=== PATIENT | male | born 1955 | race Caucasian/White ===

== ENCOUNTER 2016-11-08 09:13 | Inpatient (IN) | payer OTHER ==
[2016-11-08] VITALS (9 sets, daily range): BP systolic 169–226; BP diastolic 89–135; PULSE 73–87; RESP 15–20; O2SAT 97–99
[~2016-11-08] VITALS: Ht 177.8 cm; Wt 99.8 kg
--- NOTE | 2016-11-08 09:17 | ED.REPORT ---
HPI-Neurologic Deficit Date of Service Nov 08, 2016 ED Provider: Jesse Coles DO A healthy 61 year old male presents to the ER complaining of left upper and lower extremity weakness onset last night upon standing up off the couch after watching TV around 20:00. He admits to drinking a couple beers last night, but states that he drinks a similar quantity on a daily basis without eliciting similar symptoms. His symptoms have improved since onset, but he endorses mild residual left side deficits. Patient denies facial numbness, and any pain. Last physical 6-8years ago. Nursing Notes Stated Complaint: POSSIBLE STROKE Chief Complaint: Neuro Symptoms/ Deficits Nursing Notes Reviewed: Yes Allergies: Coded Allergies: No Known Allergies (Unverified , 11/08/16) No Active Prescriptions or Reported Meds General Time Seen by Provider: 09:17 Chief Complaint Weakness arm... (Left), Weakness leg... (Left) Hx Obtained From: Patient Arrived By: Walk-in Sudden in Onset?: Yes Onset Occurred: Yesterday Symptom Duration: Since onset Pertinent Negative: Pt denies other symptoms Related History: Denies: CVA/TIA Recent Healthcare: No recent doctor visit Similar Sx Previous: No Risk Factors NIH Stroke Scale Level of Consciousness: Alert and responsive (0) Ask Month & Age: Both questions right (0) Open/Close Eyes/Hand Special Procedure Tech: Performs both tasks (0) Horizontal EO Movements: None (0) Visual Johnson: No visual loss (0) Facial Palsy: Normal symmetry (0) Right Arm Motor Drift (10s): No drift 10 sec (0) Left Arm Motor Drift (10s): Drift, not touch bed (1) Right Leg Motor Drift (5s): No drift 5 sec (0) Left Leg Motor Drift (5s): Drift, not touch bed (1) Limb Ataxia FNF/Heel-Maldonado: Ataxia in 2 limbs (2) Sensation (Arms/Legs/Face): No sensory loss (0) Language Aphasia: No aphasia, normal (0) Dysarthria: No dysarthria, normal (0) Extinction/Inattention: No exctinct/inattent (0) NIHSS Score: 4 Time NIHSS Performed: 09:28 Date NIHSS Performed: Nov 08, 2016 CVA Risk Stratification EtOH use SmokingNo Age >60, No Atrial fibrillation, No Diabetes mellitus, No Hyperlipidemia, No Hypertension, No Prior CVA/TIA RF Statements: Risk factors reviewed Past Medical History Past Medical History Notes: Code Status: FULL CODE Past Medical History Denies MS Denies: Stroke Past Surgical History Reports: Back/neck surgery Smoking History Current Every Day Smoker Social History Alcohol Use: 1-3 per day Ambulatory Status Independent Review of Systems Musculoskeletal: Denies: Back pain, Extremity pain, Joint pain, Lumbar pain, Neck pain, Thoracic pain Neurologic: Reports: Focal weakness (Left Upper and Lower Extremities), Denies: Change LOC, Confusion, Headache, Slurred speech, Syncope, Unable to speak Complete sys rev & neg: except as marked. Physical Exam Initial Vital Signs Vital Signs (First) Date Time Temp Pulse Resp B/P Pulse Ox O2 Delivery O2 Flow Rate FiO2 11/08/16 09:16 35.9 87 16 226/121 99 Room Air Initial VS: Reviewed Neck: Supple, Non-tender, Full range of motion Abdomen / GI: Soft, Non-tender, No guarding, No rebound, No distention Extremities: Vascular intact, Neuro intact, No swelling, No tenderness Skin: Warm, Dry, No cyanosis General/Constitutional: Awake, Alert, Well developed, Well nourished Head / Eyes: Atraumatic, Normocephalic Respiratory / Chest: Breath sounds NL, Breath sounds = bilat, No respiratory distress, No rales, No rhonchi, No wheezing Cardiovascular: Heart rate NL, Regular rhythm, Heart sounds NL, Peripheral circulation NL Neurologic: Oriented X3, Speech NL, No sensory deficits See NIH Stroke Scale in the Risk section of this note. Interpretation & Diagnostics Lab Results Interpretation Result Diagram: 11/08/16 0945 11/08/16 0945 Test 11/08/16 09:45 White Blood Count 8.2th/mm3 (3.8-10.1) Red Blood Count 5.10mil/mm3 (4.40-5.80) Hemoglobin 15.6g/dL (13.8-17.2) Hematocrit 44.7% (41.0-50.0) Mean Corpuscular Volume 87.6fL (81-100) Mean Corpuscular Hemoglobin 30.6pg (27.0-35.0) Mean Corpuscular Hemoglobin Concent 34.9% (32.0-37.0) Red Cell Distribution Width 13.2% (12.3-15.4) Platelet Count 261bil/L (150-400) Neutrophils (%) (Auto) 62.8% (40-74) Lymphocytes (%) (Auto) 19.1% (14-46) Monocytes (%) (Auto) 9.8% (4-12) Eosinophils (%) (Auto) 7.2% (0-5) Basophils (%) (Auto) 0.7% (0-3) Prothrombin Time 9.9sec (8.1-12.5) Prothromb Time International Ratio 0.93ratio Activated Partial Thromboplast Time 30.6sec (22.8-33.0) Sodium Level 137mEq/L (134-144) Potassium Level 4.4mEq/L (3.5-5.2) Chloride Level 100mEq/L (97-108) Carbon Dioxide Level 21mmol/L (18-29) Blood Urea Nitrogen 13mg/dL (6-24) Creatinine 0.91mg/dL (0.76-1.27) Estimat Glomerular Filtration Rate 91mL/min (>59) Glucose Level 118mg/dL (60-99) Calcium Level 9.1mg/dL (8.5-10.1) Total Bilirubin 0.4mg/dL (0.0-1.2) Aspartate Amino Transf (AST/SGOT) 14U/L (0-50) Alanine Aminotransferase (ALT/SGPT) 18U/L (0-44) Alkaline Phosphatase 90U/L (25-160) Troponin T < 0.010ug/L (0.0-0.011) Total Protein 7.3g/dL (6.4-8.4) Albumin 4.3g/dL (3.4-5.0) ECG Interpretation ECG Interpretation: Sinus rhythm, rate 81 Time: 09:57 Interpreted by: ED physician X-Ray Chest Interpretation Chest Xray Interpretation: IMPRESSION: No acute pulmonary process. Dictated by: Rachael Mendez M.D. on 11/08/2016 at 10:48 Approved by: Rachael Mendez M.D. on 11/08/2016 at 10:48 View: Portable, 1 view Interpretation / Wet Read by: Interpret - Radiologist CT Head Interpretation IMPRESSION: No acute intracranial disease process. Dictated by: Cintia Young MD, PhD on 11/08/2016 at 9:59 Approved by: Cintia Young MD, PhD on 11/08/2016 at 10:02 Study: Head CT no contrast Interpretation / Wet Read by: Interpret - Radiologist Re-Eval/Medical Decision Med Decision/Clinical Course This patient is clearly having an acute CVA, he is outside of the time window for TPA as his symptoms began outside of the 6 hour window. He will be admitted. Source of Hx: Old records Re-Evaluation/Progress #1: Time of Eval: 09:33 Re-Evaluation/Progress Note: Discussed physical examination results and need for admission. Patient is amenable to the plan. Re-Evaluation/Progress #2: Time of Eval: 10:54 Re-Evaluation/Progress Note: Discussed code status. Patient is FULL CODE. Consultation : Referral / Consult Name: KenVeena DO Consulted With: Hospitalist Call Returned at: 10:49 Strategic Marketing Manager: Agrees with eval, Agrees with plan, Accepts admit Counseled Regarding: Diagnosis, Lab results, Need for admission Discharge & Departure Impression: Primary Impression: CVA (cerebral vascular accident) Disposition: ADMITTED TO HOSPITAL Discharge Condition All VS Reviewed: Yes Condition: Stable Scribe Attestation Portions of this note were transcribed by Trevor Geller. I, Dr. Coles, personally performed the history, physical exam and medical decision-making; I reviewed and confirmed the accuracy of the information in the transcribed note. Signed by: Roseanna Crow, 11/08/2016 and 11:04 Jesse Coles DO Nov 08, 2016 09:17 TREVOR GELLER Nov 08, 2016 09:19
[2016-11-08] MEDS ORDERED: 0.9% Sodium Chloride 1,000 ML IV ONE (09:35)
[2016-11-08 09:53] LABS: BASOPHILS % (AUTO) 0.7 % (0-3); EOSINOPHILS % (AUTO) 7.2 % (0-5); MONOCYTES % (AUTO) 9.8 % (4-12); Mean Corpuscular Hemoglobin 30.6 pg (27.0-35.0); Mean Corpuscular Volume 87.6 fL (81-100); NEUTROPHILS % (AUTO) 62.8 % (40-74); Platelet Count 261 bil/L (150-400)
--- NOTE | 2016-11-08 10:04 | DRSVH ---
PROCEDURE: CT BRAIN WITHOUT CONTRAST ([id number]) INDICATIONS: left arm and leg weakness TECHNIQUE: Noncontrast 4.5 mm thick angled axial sections acquired from the foramen magnum to the vertex, with c oronal reformats. COMPARISON: None. FINDINGS: Image quality: Excellent. CSF spaces: Basal cisterns are patent. No extra-axial fluid collections. The ventricles are symmet adrian in size and shape. Brain: No intracranial bleeds or masses. There is cerebral volume loss for age, with resultant vent ricular and sulcal prominence. There are periventricular and deep white matter chronic small vessel ischemic changes. There is intracranial internal carotid artery atherosclerosis. Skull and face: Calvarium and visualized facial bones appear intact, without suspicious lesions. Sinuses: Visualized sinuses and mastoids are clear. IMPRESSION: No acute intracranial disease process. Dictated by: Cintia Young MD, PhD on 11/08/2016 at 9:59 Approved by: Cintia Young MD, PhD on 11/08/2016 at 10:02
[2016-11-08 10:23] LABS: INR 0.93 ratio
[2016-11-08 10:24] LABS: TROPONIN T < 0.010 ug/L (0.0-0.011)
[2016-11-08] MEDS ORDERED: Labetalol 5 mg/mL 4 mL Inj IVPUSH ONE (10:30)
--- NOTE | 2016-11-08 10:49 | DRSVH ---
PROCEDURE: X-RAY CHEST ONE VIEW, PORTABLE ([id number]) INDICATIONS: left sided weakness TECHNIQUE: One view of the chest was acquired. COMPARISON: None. FINDINGS: Surgical changes and devices: None. Lungs and pleura: No pleural effusions or pneumothorax. Lungs are clear. Mediastinum: Mediastinal contours appear normal. Heart size is normal. Bones and chest wall: No suspicious bony lesions. Overlying soft tissues appear unremarkable. IMPRESSION: No acute pulmonary process. Dictated by: Rachael Mendez M.D. on 11/08/2016 at 10:48 Approved by: Rachael Mendez M.D. on 11/08/2016 at 10:48
[2016-11-08] MEDS ORDERED: Enalaprilat Inj 1.25 MG in Dextrose 5% 50 ML IV ONE (10:50)
[2016-11-08] MEDS ORDERED: Alum-Mag Hydrox-Simeth 30 mL Suspension PO PRN ×2 (11:05→12:20)
[2016-11-08] MEDS ORDERED: Ondansetron 2 mg/mL 2 mL Inj IVPUSH PRN (11:05)
[2016-11-08] MEDS ORDERED: Polyethylene Glycol (PEG) 17 Gm Powder PO PRN (12:20)
[2016-11-08] MEDS ORDERED: Labetalol 5 mg/mL 4 mL Inj IVPUSH PRN (12:20)
[2016-11-08] MEDS ORDERED: Ondansetron 2 mg/mL 2 mL Inj IV PRN (12:20)
--- NOTE | 2016-11-08 12:58 | NUR ---
Admit Patient report called by Shahnaz Carranza in the ED. Patient arrived via gurney to room 3015. Patient transferred to bed and standing scale with SBA for safety. Patient did walk/lean towards the left side. Patient left arm and left leg are weak. Patient has small abrasion on right hand and a few small abrasions on left lower leg. Patient was oriented to room, staff, call light system, bed controls, and visiting hours. Patient admit complete.
--- NOTE | 2016-11-08 15:55 | PCM.HPMED ---
Subjective Date of Service Nov 08, 2016 Primary Provider: Admitting Physician: Veena Rogers DO Primary Care Physician: William Attending Physician: Veena Rogers DO Chief Complaint: left sided weakness History of Present Illness: A healthy 61 year old male presents to the ER complaining of left upper and lower extremity weakness onset last night upon standing up off the couch after watching TV around 20:00. He admits to drinking a couple beers last night, but states that he drinks a similar quantity on a daily basis without eliciting similar symptoms. His symptoms have improved since onset, but he endorses mild residual left side deficits. Patient denies facial numbness, and any pain. Last physical 6-8years ago. Constantine is a previously healthy 61-year-old right-handed male who presented to the ED with complaints of left upper and lower extremity weakness which began after dinner the night before. He states that he had just finished eating dinner around 20:00 when he suddenly felt his left leg and left far more weaker and he had difficulties ambulating. He reports only had 2-3 beers, which is his norm nightly, but felt like he was inebriated when he was walking. He thought it may have been something he ate so he went to sleep, but woke up and still had some weakness although somewhat improved. Throughout the episode , he did not notice any dizziness, lightheadedness, chest pain, shortness of breath, or vision changes. He reports he has never had these symptoms before and was healthy prior to this. 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 He reports his coworkers were not concerned about any facial asymmetry or slurring of speech. He initially went to urgent care but was sent over to ER for further evaluation. In the ED, he was afebrile but his blood pressure was noted to be 207/117. His NIHSS was 4 due to mild left arm motor drift, left leg motor drift, and irregular finger to nose and heel to gonzalez testing. He had an urgent brain CT that did not demonstrate any acute bleeding. He also had an EKG that was NSR and a chest x-ray that was benign. Review of Systems: 12 point review of system negative except as stated in history of present illness Allergies Coded Allergies: No Known Allergies (Unverified , 11/08/16) Home Medications Denies any PMH Reports he did have 6 polyps removed during colonoscopy and was recommended a 5 year follow-up which he has not done yet Reports he had what sounds a gastric ulcer in the past, but has not had any problems with bleeding since Surgical History Reports L4-L5 back surgery as a teenager for a slipped disc Family History Denies any pertinent family history Social History Occupation: computer numerical control machinist for [employer] Hx Alcohol Use: Yes ("Couple beers a night") Hx Substance Use: No Smoking Status: Current Every Day Smoker (1-2 pack per day 40 years) Living Arrangement: Alone Additional Information with 2 children who are healthy and one grandchild Exam Vital Signs Vital Sign - Last Date Time Temp Pulse Resp B/P Pulse Ox O2 Delivery O2 Flow Rate FiO2 11/08/16 11:51 37.0 75 18 220/135 99 Room Air Exam General: Well-developed male who appears in no acute distress, cooperative, speaking full sentences fluently HEENT: Atraumatic, PERRLA, EOMI, oropharynx nonerythematous Neck: Soft, nontender CV: Regular rate and rhythm with no murmurs rubs or clicks noted Respiratory: Clear to auscultation bilaterally, normal respiratory effort Abdomen: Obese, soft, nontender, normoactive bowel sounds noted MSK: Mildly Decreased muscle strength of left hand and left leg. Neuro: Alert and oriented 3, CN 2-12 grossly intact, mildly erratic finger to nose testing of LUE with mild pronator drift, mildly erratic vlxy-zz-minx testing of LLE, mildly antalgic gait, Skin: Warm dry intact. Solar skin changes of neck face and forearms Psych: Appropriate mood and affect, linear thought process, understandable and fluent speech Lab and Diagnostics Result Diagram: 11/08/16 0945 11/08/16 0945 X-Rays, CTs and MRIs Brain CT IMPRESSION: No acute intracranial disease process. 12-lead ECG NSR rate of 80s Assessment & Plan Previously healthy 61-year-old male who presents with acute onset of left-sided upper extremity and lower extremity weakness that has moderately improved since last night. He is admitted for CVA versus TIA workup #Left-sided weakness, POA Patient's moderately improving symptom is more likely a TIA, but will continue to monitor and may be a small CVA. ABCD 2 score of 5, moderate risk of CVA We will plan for frequent neuro vital sign checks Will allow for permissive hypertension We will use labetalol IV prn blood pressure greater than 220/[address] benign on admit, will plan for echocardiogram and MR stroke protocol tomorrow PT/OT evaluation Aspirin given in the ED, to be continued daily, will also initiate atorvastatin tonight for maximal prevention. Speech therapy has recommended soft diet #Hypertensive emergency, POA Patient presented with blood pressures in the 220s over 120s with left-sided weakness He was given 10 mg of IV labetalol and 1.25 mg of IV Vasotec in the ED, which controlled his blood pressures into the 170s systolic briefly Patient currently asymptomatic, and we will be allowing permissive hypertension , but if blood pressures continue to be elevated in the 220s over 120s, And we will plan to use IV labetalol when necessary #Tobacco dependence, POA Cessation was encouraged Nicotine patch when necessary Tylenol prn fever/pain Zofran prn nausea Dispo: Likely discharge tomorrow if improving and reassuring MRI and echocardiogram Pain Evaluation: Adequate Pain Control VTE Prophylaxis: Sub-Q Heparin (Unfractionated), SCDs Resuscitation Status: CPR: Attempt Resuscitation Time spent 65 min Attending Statement The patient was seen and examined together with Resident / House-staff on and I agree with the history, exam and plan as outlined in the note above. Mahendra Cope DO Nov 08, 2016 15:55 [place] Tovar Nov 08, 2016 17:38
[2016-11-08] MEDS: Heparin 5,000 Unit/mL Inj SUBQ SCH ×2 (16:53→23:46)
[2016-11-08] MEDS: MeTOProlol 1 mg/mL 5 mL Inj IVPUSH PRN ×3 (17:25→22:17)
--- NOTE | 2016-11-08 19:45 | DRSVH ---
PROCEDURE: MRI STROKE PROTOCOL ([id number]) Pre- and post-contrast brain MRI, non-contrast brain MR angiogram, pre- and postcontrast neck MR sharmin ogram INDICATIONS: left sided weakness, ataxia TECHNIQUE: Brain: Noncontrast axial T1 spin echo, axial T2 fast spin echo, sagittal and axial FLAIR, coronal T2 fast spin echo, axial gradient echo, axial diffusion and ADC through the brain. After the administr ation of contrast, axial 3D VIBE of the cranial vasculature and brain. Brain MRA: Non-contrast 3-D time of flight MR angiogram, with multiple zryvgjy-pecswqniv-vmqjafsxhj (MIP) reformats performed. Neck MRA: Axial and sagittal TruFISP through the neck. Coronal dynamic MR angiogram during administ ration of contrast in the arterial and venous phases, with 3-dimenstional qzxgrvc-pmdtpeesu-jnrrlsfsr n (MIP) reformats constructed from subtraction images. COMPARISON: [facility], CT, CT BRAIN WO CON, 11/08/2016, 9:43. FINDINGS: Image quality: Good BRAIN: CSF spaces: Ventricles are normal in size and shape. Basal cisterns are patent. No extra-axial flu id collections. Brain: No intracranial bleeds or mass effects. Kaur-white matter interface is normal. Diffusion we ighted images show a small focal area of abnormal signal of approximately 7 mm in greatest dimension in the area of the posterior limb of the internal capsule on the right. Brainstem appears normal. No rmal intravascular flow voids are present. No abnormal intracranial enhancement. Skull and face: Calvarial marrow signal is normal. Orbits appear normal. Sinuses: Sinuses and mastoids are clear. BRAIN MR ANGIOGRAM: Anterior circulation: Intracranial internal carotid arteries are normal in size and enhancement. Th e flow within the paired anterior cerebral arteries is normal and symmetric. The flow within the mid dle cerebral arteries is normal and symmetric. The anterior communicating artery is seen. No stenos es, occlusions, or aneurysms. Posterior circulation: The visualized portions of the vertebral arteries demonstrate normal caliber, and join to form a normal appearing basilar artery. The flow within the posterior cerebral arteries is normal and symmetric. No stenoses, occlusions, or aneurysms. NECK MR ANGIOGRAM: Carotids: Great vessels demonstrate a conventional anatomy as they arise from the aortic arch. The origins of the common carotid arteries appear patent. The calibers and courses of both common caroti d arteries are normal. The bifurcation regions appear normal bilaterally. The internal carotid gay damien demonstrate normal course and caliber. Posterior circulation: The origins of the vertebral arteries appear patent. More superior portions of both vertebral arteries demonstrate normal course and caliber, and join to form a normal appearing basilar artery. Miscellaneous: Subclavian arteries appear patent. Pre-contrast images through the neck show no soft tissue abnormalities. IMPRESSION: BRAIN MRI: There is a 7 mm area of subacute infarct in the posterior limb of the right internal capsu le. No other infarcts are seen. No atrophic changes are present. BRAIN MR ANGIOGRAM: Number angiogram of the brain without contrast shows no abnormality. NECK MR ANGIOGRAM: Number angiogram of the neck with contrast is a tight stenosis at the origin of th e right vertebral artery. There is some irregularity at the origin of the more robust left but it is considered widely patent to the basilar artery from its origin. Anterior circulation is considered wi lali patent. The estimate of stenosis included in the report of the imaging study was calculated using the NASCET method Dictated by: Marquez Porter M.D. on 11/08/2016 at 19:35 Approved by: Marquez Porter M.D. on 11/08/2016 at 19:44
[2016-11-09] VITALS (11 sets, daily range): BP systolic 167–210; BP diastolic 89–123; PULSE 70–87; RESP 16–18; O2SAT 95–99
--- NOTE | 2016-11-09 06:20 | NUR ---
Blood Pressure: BP 219/130. Administered Metoprolol IV push administered. Reassessed BP: 216/139. Administered Metoprolol IV push. BP decreased 190/122. Reassessed in 30 mins, 190/104. Aware. Will continue to monitor. Call light within reach, using appropriately. Pleasant and cooperative with care.
[2016-11-09 06:36] LABS: BASOPHILS % (AUTO) 0.7 % (0-3); MONOCYTES % (AUTO) 9.2 % (4-12); Mean Corpuscular Hemoglobin 30.8 pg (27.0-35.0); Mean Corpuscular Volume 88.8 fL (81-100); NEUTROPHILS % (AUTO) 55.2 % (40-74); Platelet Count 250 bil/L (150-400)
--- NOTE | 2016-11-09 08:50 | DRSVH ---
PROCEDURE: US BILATERAL DUPLEX DOPPLER IMAGING OF THE CAROTIDS ([id number]) INDICATIONS: Evaluate stroke follow up TECHNIQUE: Color and pulse Doppler interrogation was performed of both carotid systems, with image documentation and velocity measurements. COMPARISON: None. FINDINGS: All stenosis calculations are based on NASCET criteria. Right side: Brachial blood pressure: 220/130 mm Hg. Common Carotid Artery(Distal) PSV: 87.70 cm/s Internal Carotid Artery PSV- Proximal: 59.60 cm/s Mid-lon.40 cm/s Distal: 101 cm/s EDV - Proximal: 21.50 cm/s Mid-lon.30 cm/s Distal: 32 cm/s External Carotid Artery(Proximal) PSV: 84.80 cm/s ICA/CCA PSV ratio: 1.2 Kaur scale imaging description: Moderate plaque. Percent internal carotid artery stenosis: Less than 50% stenosis. Vertebral artery: Flow direction is antegrade. Left side: Brachial blood pressure: 208/122 mm Hg. Common Carotid Artery(Distal) PSV: 87.70 cm/s Internal Carotid Artery PSV - Proximal: 60.10 cm/s Mid-lon.30 cm/s Distal: 77.70 cm/s EDV - Proximal: 16 cm/s Mid-lon.10 cm/s Distal: 24.10 cm/s External Carotid Artery(Proximal) PSV: 107.40 cm/s ICA/CCA PSV ratio: 0.9 Kaur scale imaging description: Moderate plaque. Percent internal carotid artery stenosis: Less than 50%. Vertebral artery: Flow direction is antegrade. IMPRESSION: Less than 50% bilateral internal carotid artery stenosis. Hypertension at time of exam. Dictated by: Zac GARRETT Interpreted: Albania Iglesias MD on 11/09/2016 at 8:49 Transcribed by: JAMIA on 11/09/2016 at 8:50 Approved by: Albania Iglesias M.D. on 11/09/2016 at 11:13
--- NOTE | 2016-11-09 09:48 | NUR ---
Evaluation completed. Please go to "Notes" then click on "Assessments and Notes" (bottom left corner of screen). Then select appropriate discipline tab on top of screen.
[2016-11-09] MEDS ORDERED: Labetalol 5 mg/mL 20 mL Inj IVPUSH PRN (11:00)
[2016-11-09] MEDS: Heparin 5,000 Unit/mL Inj SUBQ SCH ×2 (11:07→16:39)
--- NOTE | 2016-11-09 12:22 | DRSVH ---
[facility] [address] [place] [address] Echocardiogram Report Name: JANICE WAGNER LStudy Date : 11/09/2016 Height: 70 in Hospital Exam Location: [facility] Weight: 220 lb Gender: Male BSA: 2.2 m2 : 1955 Age: 61 yrs BP: 183/96 mmHg Reason For Study: CVA HR: 73 Ordering Physician: [facility] Interpretation Summary The left ventricle is normal in size. Left ventricular systolic function is mildly reduced. The ejection fraction is estimated to be 45-50%. Possible mild hypokinesis along the anterior septal. Assessment of diastolic parameters indicates a relaxation abnormality of the left ventricle, consistent with normal filling pressures. The right ventricle is normal in size and function. TAPSE measures at 21mm. The left atrial size is normal. Right atrial size is normal. Injection of contrast documented no interatrial shunt. There is no significant valvular heart disease. The aortic root is normal size. No obvious source cardioembolic CVA/TIA. Procedure: A two-dimensional transthoracic echocardiogram with color flow and Doppler was performed. The study quality was technically adequate. Suboptimal parasternal acoustic window. There is no prior echocardiogram noted for this patient. The patient was in normal sinus rhythm during the exam. Left Ventricle: The left ventricle is normal in size. There is normal left ventricular wall thickness. Left ventricular systolic function is mildly reduced. The ejection fraction is estimated to be 45-50%. Possible mild hypokinesis along the anterior septal. Assessment of diastolic parameters indicates a relaxation abnormality of the left ventricle, consistent with normal filling pressures. Right Ventricle: The right ventricle is normal in size and function. TAPSE measures at 21mm. Atria: The left atrial size is normal. Right atrial size is normal. The interatrial septum is intact with no evidence for an atrial septal defect. Injection of contrast documented no interatrial shunt. Mitral Valve: The mitral valve leaflets appear borderline thickened, but open well. There is no mitral stenosis. There is trace mitral regurgitation. Aortic Valve: The aortic valve is not well visualized. There is mild aortic valve sclerosis. There is no aortic stenosis. No aortic regurgitation is present. Tricuspid Valve: The tricuspid valve is normal in structure and function. There is trace tricuspid regurgitation. Pulmonic Valve: The pulmonic valve is normal in structure and function. There is trace pulmonic regurgitation. There is no significant valvular heart disease. Great Vessels: The aortic root is normal size. The dimensions of the ascending aorta are normal. The pulmonary artery is normal size. The IVC is of normal diameter and collapses greater than 50% with a sniff. This suggests a low right atrial pressure of 3 mm Hg. Pericardium/ Pleura There is no pericardial effusion. There is no pleural effusion. MMode/2D Measurements & Calculations LVIDd: 4.7 cm LA dimension: 3.6 cm RA long axis LVOT diam LVIDs: 3.6 cm FS: 23.4 % LA A2 area: 20.2 cm RA area AoV Opening EPSS: 0.69 cm LA A4 area: 14.1 cm IVSd: 1.1 cm LA length (vol): 4.9 cm: 12.7 cm Ao root diam LVPWd: 1.0 cm LA vol: 49.5 ml RA vol LA vol index : 33.3 ml asc Aorta RA Diam: 3.4 cm : 22.8 ml/m2 : 15.3 mm2 LV frey. diameter/BSA LV sys. diameter/BSA (cm/m^2): 2.2 (cm/m^2): 1.7 Doppler Measurements & Calculations Ao V2 max MV E max sivakumar MV E/A: 0.89 PA V2 max : 126.0 cm/sec : 77.8 cm/sec Med Peak E' Sivakumar : 57.5 cm/sec Ao max P.4 mmHg MV A max sivakumar PA mean PG Ao mean P.5 mmHg : 87.9 cm/sec E/E' med: 15.7 : 0.82 mmHg LVOT Max Sivakumar Pulm A Revs Dur PA Accel Time : 90.7 cm/sec : 0.11 sec MARGO(I,D): 3.1 cm MV A dur sev ratio: 0.69 : 0.13 sec MV dec time: 0.19 secAo V2 mean LV V1 max PG PA V2 mean : 90.1 cm/sec : 42.7 cm/sec Ao V2 VTI: 28.5 cm LV V1 VTI PA pr(Accel) : 19.8 cm : 31.6 mmHg MARGO(V,D): 3.2 cm2 MARGO indexed to BSA Pulm A Revs Dur - MV A (cm^2/m^2): 1.4 Dur: -0.01 msec Reading Physician:LEEANN
--- NOTE | 2016-11-09 13:48 | NUR ---
BLOOD PRESSURE P-Patient's am blood pressure 201/112 I- Gave 10mg Labetalol IVP per directions. E- 1130 BP 190/100, 1230 BP 171/115. NEURO- some left hand weakness noted, appears very slight tongue deviation, Patient states "I much better than yesterday. CVS- See above note PLUM-RA GI-Soft/thins, daily weights -Urinal SKIN-Patient up with PT walking francois, reports slight leg dragging. PAIN- Denies IV-S/L PLAN- ECHO done today results pending, PT and OT involved. Discharge planning started.
--- NOTE | 2016-11-09 14:34 | NUR ---
Social Work: Screening / Readiness for d/c Data: Pt is a 61 y/o male admitted for CVA. Pt's PCP is not listed. Pt's insurance is [employer]. PT and OT have met with pt, both recommending home and a cane for pt. PRESS TOOL MAKER requested prescription from . Faxed to UR specialist to see if pt's insurance will cover this. PRESS TOOL MAKER will continue to follow. Assessment: Pt who is independent at baseline. Plan: Pt will d/c home via POV when medically ready, likely tomorrow per . PRESS TOOL MAKER will continue to follow. LUKASZ Macias
[2016-11-09] MEDS ORDERED: CANE-70 MC (14:40)
--- NOTE | 2016-11-09 17:27 | PCM.PNMED ---
Subjective Date of Service Nov 09, 2016 Subjective Constantine Landers is a 61-year-old man without significant past medical history who presents with acute onset of left-sided upper extremity and lower extremity weakness currently under treatment for right internal capsule infarct. Hospital day #2. Overnight: The patient remained hypertensive. Today: The patient feels well and has improved mobility. He denies any chest pain, shortness of breath, fevers, chills or nausea. The remainder of the review of systems is negative except as noted above. Exam Vital Signs Vital Sign - Last Date Time Temp Pulse Resp B/P Pulse Ox O2 Delivery O2 Flow Rate FiO2 11/09/16 16:43 36.8 83 16 210/105 99 Room Air Intake and Output 11/08/16 11/08/16 11/09/16 Cumulative From/Thru 15:00 23:00 07:00 11/08/16 09:16 - 11/09/16 04:14 Intake Total 820 ml 400 ml 1220 ml Output Total 850 ml 1400 ml 2250 ml Balance -30 ml -1000 ml -1030 ml Intake Oral 820 ml 400 ml 1220 ml Output Urine Total 850 ml 1400 ml 2250 ml # Voids 1 1 Exam General: Well-developed male who appears in no acute distress, cooperative, speaking full sentences fluently HEENT: Atraumatic, PERRLA, EOMI, oropharynx nonerythematous Neck: Soft, nontender CV: Regular rate and rhythm with no murmurs rubs or clicks noted Respiratory: Clear to auscultation bilaterally, normal respiratory effort Abdomen: Obese, soft, nontender, normoactive bowel sounds noted MSK: Mildly Decreased muscle strength of left hand and left leg. Neuro: Alert and oriented 3, CN 2-12 grossly intact, mildly erratic finger to nose testing of LUE with mild pronator drift, mildly erratic [id number] testing of LLE, mildly antalgic gait, Skin: Warm dry intact. Solar skin changes of neck face and forearms Psych: Appropriate mood and affect, linear thought process, understandable and fluent speech IVs and Medications Medications Reviewed: Medications were reviewed in detail Lab and Diagnostics Result Diagram: 11/09/16 0601 11/09/16 0601 X-Rays, CTs and MRIs PROCEDURE: CT BRAIN WITHOUT CONTRAST ([id number]) IMPRESSION: No acute intracranial disease process. Dictated by: Cintia Young MD, PhD on 11/08/2016 at 9:59 MRI STROKE PROTOCOL Pre- and post-contrast brain MRI, non-contrast brain MR angiogram, pre- and postcontrast neck MR angiogram IMPRESSION: BRAIN MRI: There is a 7 mm area of subacute infarct in the posterior limb of the right internal capsule. No other infarcts are seen. No atrophic changes are present. BRAIN MR ANGIOGRAM: Number angiogram of the brain without contrast shows no abnormality. NECK MR ANGIOGRAM: Number angiogram of the neck with contrast is a tight stenosis at the origin of the right vertebral artery. There is some irregularity at the origin of the more robust left but it is considered widely patent to the basilar artery from its origin. Anterior circulation is considered widely patent. The estimate of stenosis included in the report of the imaging study was calculated using the NASCET method Dictated by: Marquez Porter M.D. on 11/08/2016 at 19:35 12-lead ECG NSR rate of 80s Cardiac Echo Impressions Interpretation Summary The left ventricle is normal in size. Left ventricular systolic function is mildly reduced. The ejection fraction is estimated to be 45-50%. Possible mild hypokinesis along the anterior septal. Assessment of diastolic parameters indicates a relaxation abnormality of the left ventricle, consistent with normal filling pressures. The right ventricle is normal in size and function. TAPSE measures at 21mm. The left atrial size is normal. Right atrial size is normal. Injection of contrast documented no interatrial shunt. There is no significant valvular heart disease. The aortic root is normal size.No obvious source cardioembolic CVA/TIA. Assessment & Plan Constantine Landers is a 61-year-old man without significant past medical history who presents with acute onset of left-sided upper extremity and lower extremity weakness currently under treatment for right internal capsule infarct. Hospital day #2. 1. Right internal capsule infarct, subacute, present on admission -Patient currently recovering with improved mobility -Etiology likely right vertebral artery stenosis -Discussed case with [facility] neurologist education department chair and he believed that there was no indication for intervention at this time due to timing. His recommendation was maximal medical management unless the patient was to develop recurrent strokes. Recommend follow up with the stroke clinic at [facility]. -Will allow for permissive hypertension for 24 hours -We will use labetalol IV PRN blood pressure greater than 220/120 or symptomatic -ECHO is not remarkable -PT/OT evaluation completed -Patient was not on previously on ASA. Will continue daily 81 mg ASA. Increase atorvastatin to 40 mg daily. -Speech therapy has recommended soft diet 2. Right vertebral artery stenosis, acuity uncertain, present on admission -Plan as above 3. Hypertensive emergency, acute, present on admission -Patient presented with blood pressures in the 220s over 120s with left-sided weakness -He was given 10 mg of IV labetalol and 1.25 mg of IV Vasotec in the ED, which controlled his blood pressures into the 170s systolic briefly -Patient currently asymptomatic, allowing permissive hypertension for 24 hours after stroke -IV labetalol for 220/120 -Will start lisinopril 10 mg BID 4. Hypercholesterolemia, chronic, present on admission -Atorvastatin 40 mg HS 5. Tobacco dependence, chronic, present on admission -Cessation was encouraged -Nicotine patch when necessary Tylenol prn fever/pain Zofran prn nausea Dispo: Likely discharge tomorrow if blood pressure is better controlled. VTE Prophylaxis: Sub-Q Heparin (Unfractionated), SCDs VTE Mechanical Devices: Intermittant Pneumatic CD Resuscitation Status: CPR: Attempt Resuscitation Attending Statement The patient was seen and examined together with Dr. Rader on 11/09 and I agree with the history, exam and plan as outlined in the note above Saadia Rader DO Nov 09, 2016 17:26 Endy Patel MD Nov 09, 2016 18:12
[2016-11-10] MEDS: Heparin 5,000 Unit/mL Inj SUBQ SCH ×2 (00:13→09:09)
[2016-11-10 04:22] VITALS: BP 170/97; PULSE 74; RESP 18; O2SAT 97
--- NOTE | 2016-11-10 05:35 | NUR ---
Neuro Stable/Hypertension Neuro stable overnight:Alert and orientedx3, left upper and lower extremities weakness,strength 4/5,improved per pt, otherwise no focal neurological deficit: no speech or facial droop noted,tongue midline,sensation intact, full strength 5/5 at right upper and lower extremities. BP 188/123 at pm, Lisinopril given as scheduled, recheck BP 167/89, recent BP 170/94 this am. Denies headache.
[2016-11-10 05:57] VITALS: PULSE 77
[2016-11-10 10:01] VITALS: BP 169/104; PULSE 94; RESP 18; O2SAT 98
[2016-11-10 10:26] VITALS: PULSE 90
--- NOTE | 2016-11-10 14:00 | NUR ---
Social Work: Discharge Data: Pt is on day 2 of hospitalization. EMR reviewed. states pt will d/c today. Pt requires a cane for d/c. PRE SALES SYSTEMS ENGINEER met with pt who states he prefers to buy cane privately rather than pick and shovel man cane in [place] today, did not want any further info from PRE SALES SYSTEMS ENGINEER. Pt states that he has an appointment set up with the [facility] with a resident who met with him this afternoon. No further d/c planning needs. PRE SALES SYSTEMS ENGINEER will continue to follow if needs arise. Assessment: Pt who is independent at baseline. Plan: Pt will d/c home via POV today and plans to buy cane privately. Appointment set up with residency clinic per pt. No further d/c planning needs. PRE SALES SYSTEMS ENGINEER will continue to follow if needs arise. LUKASZ Macias
--- NOTE | 2016-11-10 14:17 | PCM.DIMED ---
Mahendra Cope DO 11/10/16 1417: Discharge Instructions Date of Service Nov 10, 2016 Dates of Hospitalization Nov 08, 2016 at 10:50 Discharge Diagnosis Discharge Diagnosis 1. Right internal capsule infarct, subacute 2. Right vertebral artery stenosis 3. Hypertensive emergency - resolved 4. Hypercholesterolemia, chronic 5. Tobacco dependence Medication Instructions Please take your medications as instructed. You need to take the cholesterol, aspirin, and blood pressure medications daily for it to be effective Diet Heart Healthy Activity Outpatient Physical Therapy Call your provider Fever or Chills, Shortness of breath, Bleeding, Chest pain, Weakness (unilateral ) Patient Instructions Please take your medications as instructed Please follow-up with the residency clinic on November 14. You will have an appointment with Dr. Carmen Mascorro at 3:30. Please arrive 10 minutes early to fill out paperwork. Please be cautious until then and usually cane at all times Please also follow up with outpatient physical therapy Please work on smoking cessation starting now! Please use the nicotine patches as prescribed, if you need more, just call and let me know. Follow-up Provider: Carmen Mascorro DO Follow-up with PCP in: 1 week Nilo Pinto DO 11/11/16 1116: Discharge Instructions Attending's Statement Read and agree Mahendra Cope DO Nov 10, 2016 14:17 Nilo Pinto DO Nov 11, 2016 11:16
[2016-11-10] MEDS ORDERED: LISI-567 PO (14:22)
[2016-11-10] MEDS ORDERED: HYDR25TA4 PO (14:22)
[2016-11-10] MEDS ORDERED: ASPI-973 PO (14:22)
[2016-11-10] MEDS ORDERED: NICO1PAT5 TOPICAL (14:22)
[2016-11-10] MEDS ORDERED: ATOR10TA66 PO (14:22)
--- NOTE | 2016-11-10 15:12 | NUR ---
Discharge: Patient discharged to home @ approx 1510. IV d/c'd intact, telemetry removed, environmental monitoring technician notified. Personal belongings sent home with patient. Reviewed new prescriptions, d/c instructions and follow up appointment. Verbalized understanding. Escorted to main entrance via wheelchair accompanied by EXTENSION DIVISION DIRECTOR.
--- NOTE | 2016-11-10 15:37 | PCM.DC.MED ---
Discharge Summary Date of Service Nov 10, 2016 Dates of Hospitalization Date of Hospital Admission Nov 08, 2016 at 10:50 Date of Discharge: Nov 10, 2016 Providers: Admitting Physician: Veena Rogers DO Primary Care Physician: William Attending Physician: Veena Rogers DO Diagnosis at Time of Discharge Diagnosis at Time of Discharge 1. Right internal capsule infarct, subacute 2. Right vertebral artery stenosis 3. Hypertensive emergency - resolved 4. Hypercholesterolemia, chronic 5. Tobacco dependence Procedures XRay, CTs & MRIs PROCEDURE: CT BRAIN WITHOUT CONTRAST ([id number]) IMPRESSION: No acute intracranial disease process. Dictated by: Cintia Young MD, PhD on 11/08/2016 at 9:59 MRI STROKE PROTOCOL Pre- and post-contrast brain MRI, non-contrast brain MR angiogram, pre- and postcontrast neck MR angiogram IMPRESSION: BRAIN MRI: There is a 7 mm area of subacute infarct in the posterior limb of the right internal capsule. No other infarcts are seen. No atrophic changes are present. BRAIN MR ANGIOGRAM: Number angiogram of the brain without contrast shows no abnormality. NECK MR ANGIOGRAM: Number angiogram of the neck with contrast is a tight stenosis at the origin of the right vertebral artery. There is some irregularity at the origin of the more robust left but it is considered widely patent to the basilar artery from its origin. Anterior circulation is considered widely patent. The estimate of stenosis included in the report of the imaging study was calculated using the NASCET method Dictated by: Marquez Porter M.D. on 11/08/2016 at 19:35 ECG 12 Lead NSR rate of 80s Cardiac Echo Impression Interpretation Summary The left ventricle is normal in size. Left ventricular systolic function is mildly reduced. The ejection fraction is estimated to be 45-50%. Possible mild hypokinesis along the anterior septal. Assessment of diastolic parameters indicates a relaxation abnormality of the left ventricle, consistent with normal filling pressures. The right ventricle is normal in size and function. TAPSE measures at 21mm. The left atrial size is normal. Right atrial size is normal. Injection of contrast documented no interatrial shunt. There is no significant valvular heart disease. The aortic root is normal size.No obvious source cardioembolic CVA/TIA. Brief History A healthy 61 year old male presents to the ER complaining of left upper and lower extremity weakness onset last night upon standing up off the couch after watching TV around 20:00. He admits to drinking a couple beers last night, but states that he drinks a similar quantity on a daily basis without eliciting similar symptoms. His symptoms have improved since onset, but he endorses mild residual left side deficits. Patient denies facial numbness, and any pain. Last physical 6-8years ago. Constantine is a previously healthy 61-year-old right-handed male who presented to the ED with complaints of left upper and lower extremity weakness which began after dinner the night before. He states that he had just finished eating dinner around 20:00 when he suddenly felt his left leg and left far more weaker and he had difficulties ambulating. He reports only had 2-3 beers, which is his norm nightly, but felt like he was inebriated when he was walking. He thought it may have been something he ate so he went to sleep, but woke up and still had some weakness although somewhat improved. Throughout the episode , he did not notice any dizziness, lightheadedness, chest pain, shortness of breath, or vision changes. He reports he has never had these symptoms before and was healthy prior to this. 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 He reports his coworkers were not concerned about any facial asymmetry or slurring of speech. He initially went to urgent care but was sent over to ER for further evaluation. In the ED, he was afebrile but his blood pressure was noted to be 207/117. His NIHSS was 4 due to mild left arm motor drift, left leg motor drift, and irregular finger to nose and heel to gonzalez testing. He had an urgent brain CT that did not demonstrate any acute bleeding. He also had an EKG that was NSR and a chest x-ray that was benign. Hospital Course Constantine Landers is a 61-year-old man without significant past medical history who presents with acute onset of left-sided upper extremity and lower extremity weakness currently under treatment for right internal capsule infarct. 1. Right internal capsule infarct, subacute, present on admission -Patient currently recovering with improved mobility -Etiology likely right vertebral artery stenosis -Discussed case with [facility] neurologist assembl[employer] and [employer] and he believed that there was no indication for intervention at this time due to timing. His recommendation was maximal medical management unless the patient was to develop recurrent strokes. Recommend follow up with the stroke clinic at [facility]. -Permissive hypertension for was allowed for 24 hours -Had to use Labetalol IV PRN blood pressure greater than 220/120 or symptomatic during stay -ECHO mostly unremarkable except mild LVH -PT/OT evaluation completed - Recommends outpatient PT/OT. -Patient was not on previously on ASA. Will continue daily 81 mg ASA. Increased atorvastatin to 40 mg daily. -Speech therapy has recommended soft diet only because of poor dentition. 2. Right vertebral artery stenosis, acuity uncertain, present on admission -Plan as above 3. Hypertensive emergency, acute, present on admission -Patient presented with blood pressures in the 220s over 120s with left-sided weakness -He was given 10 mg of IV labetalol and 1.25 mg of IV Vasotec in the ED, which controlled his blood pressures into the 170s systolic briefly -Patient currently asymptomatic, allowed permissive hypertension for 24 hours after stroke -Titrated BP regimen up to Lisinopril 20mg BID and HCTZ 25mg daily. Consider titration as needed. 4. Hypercholesterolemia, chronic, present on admission -Atorvastatin 40 mg HS 5. Tobacco dependence, chronic, present on admission -Cessation was encouraged -Nicotine patch provided on discharge Exam Vital Signs (Last) Date Time Temp Pulse Resp B/P Pulse Ox O2 Delivery O2 Flow Rate FiO2 11/10/16 10:26 90 11/10/16 10:01 36.6 18 169/104 98 Room Air Exam General: Well-developed male who appears in no acute distress, cooperative, speaking full sentences fluently HEENT: Atraumatic, PERRLA, EOMI, oropharynx nonerythematous Neck: Soft, nontender CV: Regular rate and rhythm with no murmurs rubs or clicks noted Respiratory: Clear to auscultation bilaterally, normal respiratory effort Abdomen: Obese, soft, nontender, normoactive bowel sounds noted MSK: Mildly Decreased muscle strength of left hand and left leg. Neuro: Alert and oriented 3, CN 2-12 grossly intact, mildly erratic finger to nose testing of LUE with mild pronator drift, mildly erratic [id number] testing of LLE Skin: Warm dry intact. Solar skin changes of neck face and forearms Psych: Appropriate mood and affect, linear thought process, understandable and fluent speech Test 11/08/16 09:45 11/09/16 06:01 11/10/16 10:55 11/10/16 14:00 Prothrombin Time 9.9sec (8.1-12.5) Prothromb Time International Ratio 0.93ratio Activated Partial Thromboplast Time 30.6sec (22.8-33.0) Total Bilirubin 0.4mg/dL (0.0-1.2) Aspartate Amino Transf (AST/SGOT) 14U/L (0-50) Alanine Aminotransferase (ALT/SGPT) 18U/L (0-44) Alkaline Phosphatase 90U/L (25-160) Troponin T < 0.010ug/L (0.0-0.011) Total Protein 7.3g/dL (6.4-8.4) Albumin 4.3g/dL (3.4-5.0) White Blood Count 8.1th/mm3 (3.8-10.1) Red Blood Count 4.83mil/mm3 (4.40-5.80) Hemoglobin 14.9g/dL (13.8-17.2) Hematocrit 42.9% (41.0-50.0) Mean Corpuscular Volume 88.8fL (81-100) Mean Corpuscular Hemoglobin 30.8pg (27.0-35.0) Mean Corpuscular Hemoglobin Concent 34.7% (32.0-37.0) Red Cell Distribution Width 13.3% (12.3-15.4) Platelet Count 250bil/L (150-400) Neutrophils (%) (Auto) 55.2% (40-74) Lymphocytes (%) (Auto) 26.5% (14-46) Monocytes (%) (Auto) 9.2% (4-12) Eosinophils (%) (Auto) 8.0% (0-5) Basophils (%) (Auto) 0.7% (0-3) Magnesium Level 2.0mg/dL (1.6-2.6) Triglycerides Level 250mg/dL (0-149) Cholesterol Level 209mg/dL (100-199) LDL Cholesterol, Calculated 115.000mg/dL (0-99) VLDL Cholesterol 50.000mg/dL HDL Cholesterol 44mg/dL (>39) Cholesterol/HDL Ratio 4.75 (0.0-4.4) Thyroid Stimulating Hormone (TSH) 3.440uIU/mL (0.450-4.500) Sodium Level 136mEq/L (134-144) Potassium Level 4.1mEq/L (3.5-5.2) Chloride Level 99mEq/L (97-108) Carbon Dioxide Level 23mmol/L (18-29) Blood Urea Nitrogen 14mg/dL (6-24) Creatinine 0.97mg/dL (0.76-1.27) Estimat Glomerular Filtration Rate 84mL/min (>59) Glucose Level 127mg/dL (60-99) Calcium Level 9.4mg/dL (8.5-10.1) Discharge Medications Discharge Medications Aspirin (Aspirin) 81 Mg Tablet 81 MG PO DAILY Prescribed by: SOLIS COPE DO Atorvastatin Calcium (Atorvastatin Calcium) 10 Mg Tablet 40 MG PO HS Prescribed by: SOLIS COPE DO Hydrochlorothiazide (Hydrochlorothiazide) 25 Mg Tablet 25 MG PO DAILY Prescribed by: SOLIS COPE DO Lisinopril (Lisinopril) 20 Mg Tablet 20 MG PO BID Prescribed by: SOLIS COPE DO Nicotine 14 mg/24 hr Patch (Nicotine 14 mg/24 hr Patch) 1 Each Patch.td24 1 PATCH TOPICAL DAILY Prescribed by: SOLIS COPE DO Durable Medical Equipment Cane (Cane) 1 Each Each 1 EACH [facility] (DME) Prescribed by: JADE WALTERS DO Additional med instructions Please take your medications as instructed. You need to take the cholesterol, aspirin, and blood pressure medications daily for it to be effective Followup Plan Disposition: Home Discharge Diet: Heart Healthy Discharge Activity: Outpatient Physical Therapy Patient Instructions Please take your medications as instructed Please follow-up with the residency clinic on November 14. You will have an appointment with Dr. Carmen Mascorro at 3:30. Please arrive 10 minutes early to fill out paperwork. Please be cautious until then and usually cane at all times Please also follow up with outpatient physical therapy Please work on smoking cessation starting now! Please use the nicotine patches as prescribed, if you need more, just call and let me know. Follow-up Provider: Carmen Mascorro DO Follow-up with PCP in: 1 week Time spent 40 minutes Attending Statement I have seen and evaluated patient at bedside in addition to directly supervising care provided by resident physician. I agree with above documentation. copies to: Carmen Mascorro DO Mahendra Cope DO Nov 10, 2016 15:37 Nilo Pinto DO Nov 11, 2016 13:05
== END 2016-11-10 15:06 | disposition home or self-care (01) | DRG 65 ==
LOC: SED 09:13 → OBSVTOIN 10:50 → MPC 10:50
PROVIDERS: ADMIT Neuromusculoskeletal Medicine & OMM; ATTEND Internal Medicine
DX: I63.211 Cerebral infarction due to unspecified occlusion or stenosis of right vertebral artery (principal); I16.1 Hypertensive emergency; G81.94 Hemiplegia, unspecified affecting left nondominant side; F17.210 Nicotine dependence, cigarettes, uncomplicated; R29.704 NIHSS score 4; E78.00 Pure hypercholesterolemia, unspecified